=== PATIENT | female | born 1945 | race Two or more races ===

== ENCOUNTER 2022-08-16 06:00 | Day surgery (SDC) | payer OTHER ==
[~2022-08-16] VITALS: Ht 162.6 cm; Wt 78.0 kg
[~2022-08-16 06:00] MED LIST: IRBESARTAN-HCT1 EACH PO; LIPIT PO; SYNTHROID75 MCG PO; VITAMIN D; ZIAC 2.5-6.251 EACH PO; ZOL PO
== END 2022-08-17 00:55 | disposition home or self-care (01) ==
LOC: CIR.AMB 06:00
PROVIDERS: ATTEND Surgery
DX: C50.412 Malignant neoplasm of upper-outer quadrant of left female breast (principal); N60.92 Unspecified benign mammary dysplasia of left breast; N60.82 Other benign mammary dysplasias of left breast; R59.0 Localized enlarged lymph nodes; I10 Essential (primary) hypertension; Z20.822 Contact with and (suspected) exposure to COVID-19; D68.9 Coagulation defect, unspecified
CPT/HCPCS: 19301; 38525; 38792; 19281; 19285; A9541; L8699